=== PATIENT | female | born 1945 | race Caucasian/White ===

== ENCOUNTER 2017-09-09 00:19 | Inpatient (IN) | payer MEDICAID ==
[2017-09-09] MEDS: SOD CHLORIDE 0.9% 500 ML IV (02:49)
[2017-09-09 03:40] LABS: ADD MAN DIFF? NO
[2017-09-09 03:44] LABS: BASOPHIL # 0.1 10^3/ul (0.0-0.1); BASOPHILS % 0.8 % (0.0-2.0); EOSINOPHILS # 0.3 10^3/ul (0.0-0.5); HEMATOCRIT 35.9 % (37.0-47.0); HEMOGLOBIN 11.2 g/dl (12.0-16.0); LYMPHOCYTES # 2.7 10^3/ul (0.8-2.9); LYMPHOCYTES % 30.8 % (15.0-51.0); MEAN CORPUSCULAR HEMOGLOBIN 26.8 pg (29.0-33.0); MEAN CORPUSCULAR HGB CONC 31.2 g/dl (32.0-37.0); MEAN CORPUSCULAR VOLUME 85.9 fl (82.0-101.0); MEAN PLATELET VOLUME 10.6 fl (7.4-10.4); MONOCYTE # 0.7 10^3/ul (0.3-0.9); MONOCYTES % 8.2 % (0.0-11.0); PLATELET COUNT 303 10^3/UL (140-415); RED BLOOD COUNT 4.18 10^6/ul (4.20-5.40); RED CELL DISTRIBUTION WIDTH 15.3 % (11.5-14.5)
[2017-09-09 03:44] LABS: WHITE BLOOD COUNT 8.7 10^3/ul (4.8-10.8)
[2017-09-09 04:24] LABS: ANION GAP 18 (8-16); BLOOD UREA NITROGEN 19 mg/dl (7-20); CALCIUM 8.7 mg/dl (8.4-10.2); CARBON DIOXIDE 25 mmol/L (21-31); CHLORIDE 108 mmol/L (97-110); CREATININE 0.79 mg/dl (0.44-1.00); GLUCOSE 100 mg/dl (70-220); POTASSIUM 4.5 mmol/L (3.5-5.1); SODIUM 146 mmol/L (135-144)
[2017-09-09 04:56] LABS: TROPONIN-I < 0.012 ng/ml (0.00-0.12)
[2017-09-09] MEDS ORDERED: NACL 0.9% 3 ML SYG IV (08:00)
[2017-09-09] MEDS ORDERED: morphine 2 MG INJ IV (08:00)
[2017-09-09] MEDS ORDERED: ALBUTEROL/IPRATROPIUM (NEB) 3 ML AMP HHN (08:00)
[2017-09-09] MEDS ORDERED: ONDANSETRON 4 MG INJ IV (08:00)
[2017-09-09 09:09] LABS: CREATINE KINASE 47 IU/L (23-200)
[2017-09-09 09:22] LABS: CK INDEX 1.2; CK-MB 0.55 ng/ml (0.0-2.4)
[2017-09-09 09:26] LABS: TROPONIN-I < 0.012 ng/ml (0.00-0.12)
[2017-09-09] MEDS: IBUPROFEN 600 MG TAB PO ×2 (12:37→21:00)
[2017-09-09 14:08] LABS: CREATINE KINASE 46 IU/L (23-200)
[2017-09-09 14:18] LABS: CK INDEX 1.2; CK-MB 0.53 ng/ml (0.0-2.4)
[2017-09-09 14:32] LABS: TROPONIN-I < 0.012 ng/ml (0.00-0.12)
[2017-09-09] MEDS: ACETAMINOPHEN 325 MG TAB PO (15:22)
[2017-09-09] MEDS: hydrALAzine 20 MG INJ IV (16:25)
[2017-09-10] MEDS: hydrALAzine 20 MG INJ IV (00:46)
[2017-09-10 08:21] LABS: ADD MAN DIFF? NO
[2017-09-10 08:24] LABS: BASOPHILS % 0.6 % (0.0-2.0); EOSINOPHILS # 0.2 10^3/ul (0.0-0.5); EOSINOPHILS % 3.2 % (0.0-7.0); HEMATOCRIT 36.7 % (37.0-47.0); HEMOGLOBIN 12.1 g/dl (12.0-16.0); LYMPHOCYTES # 2.6 10^3/ul (0.8-2.9); LYMPHOCYTES % 36.7 % (15.0-51.0); MEAN CORPUSCULAR HEMOGLOBIN 27.4 pg (29.0-33.0); MEAN PLATELET VOLUME 10.8 fl (7.4-10.4); MONOCYTE # 0.5 10^3/ul (0.3-0.9); MONOCYTES % 6.3 % (0.0-11.0); NEUTROPHIL # 3.8 10^3/ul (1.6-7.5); NEUTROPHILS % 53.1 % (39.0-77.0); PLATELET COUNT 298 10^3/UL (140-415); RED BLOOD COUNT 4.42 10^6/ul (4.20-5.40); RED CELL DISTRIBUTION WIDTH 15.9 % (11.5-14.5)
[2017-09-10 08:24] LABS: WHITE BLOOD COUNT 7.1 10^3/ul (4.8-10.8)
[2017-09-10 08:34] LABS: HEMOGLOBIN A1C 5.9 % (0-5.9)
[2017-09-10] MEDS: IBUPROFEN 600 MG TAB PO ×2 (08:35→12:13)
[2017-09-10 08:48] LABS: ALANINE AMINOTRANSFERASE 28 IU/L (13-69); ALBUMIN 3.8 g/dl (3.3-4.9); ALBUMIN/GLOBULIN RATIO 0.97; ALKALINE PHOSPHATASE 107 IU/L (42-121); ANION GAP 18 (8-16); ASPARTATE AMINO TRANSFERASE 25 IU/L (15-46); BILIRUBIN,INDIRECT 0.1 mg/dl (0-1.1); BILIRUBIN,TOTAL 0.1 mg/dl (0.2-1.3); BLOOD UREA NITROGEN 18 mg/dl (7-20); CALCIUM 9.5 mg/dl (8.4-10.2); CARBON DIOXIDE 27 mmol/L (21-31); CHLORIDE 105 mmol/L (97-110); CHOL/HDL RATIO 4.7 RATIO; CHOLESTEROL 160 mg/dl (100-200); CREATININE 0.62 mg/dl (0.44-1.00); GLUCOSE 110 mg/dl (70-220); HDL CHOLESTEROL 34 mg/dl (33-92); LDL CHOLESTEROL,CALCULATED 87 mg/dl; POTASSIUM 3.8 mmol/L (3.5-5.1); SODIUM 146 mmol/L (135-144); TOTAL PROTEIN 7.7 g/dl (6.1-8.1); TRIGLYCERIDES 196 mg/dl (0-149)
[2017-09-10] MEDS: HYDROCHLOROTHIAZIDE 25 MG TAB PO (10:51)
== END 2017-09-10 19:40 | disposition home or self-care (01) | DRG 312 ==
LOC: FTE 00:19 → TEL 05:06
DX: R55 Syncope and collapse (principal); D63.8 Anemia in other chronic diseases classified elsewhere; I10 Essential (primary) hypertension; Z91.81 History of falling; R51 Headache
CPT/HCPCS: 36415; 70450; 71045; 80048; 80053; 80061; 82550; 82553; 82962; 83036; 84484; 85025; 93005; 93306; 93880; 96360; 97162; 97166; 97535; 99285-25